=== PATIENT | female | born 1940 | race Caucasian/White ===

== ENCOUNTER 2016-11-11 13:22 | Emergency (ER) | payer MEDICARE, OTHER ==
[~2016-11-11 13:22] MED LIST: ALEVE220 MG PO; B12250T PO; DILT-XR120 MG PO; HALF81 PO; SYN1 PO
[2016-11-11 14:25] LABS: BASOPHILS 0.5 %; BASOPHILS ABSOLUTE 0.03 10/3/uL (0.0-0.16); EOSINOPHILS 0.5 %; EOSINOPHILS ABSOLUTE 0.03 10/3/uL (0.0-0.53); LYMPHOCYTES 14.6 %; LYMPHOCYTES ABSOLUTE 0.94 10/3/uL (0.67-4.30); MEAN CORPUSCULAR HEMOGLOB 31.5 pg (26.0-34.0); MEAN CORPUSCULAR VOLUME 95.4 fL (80-100); MEAN PLATELET VOLUME 11.1 fL (9.2-13.0); MONOCYTES 9.2 %; MONOCYTES ABSOLUTE 0.59 10/3/uL (0.21-1.20); NEUTROPHILS 75.2 %; NEUTROPHILS ABSOLUTE 4.84 10/3/uL (2.02-8.40); PLATELET COUNT 167 10/3/uL (150-400); RBC DISTRIBUTION WIDTH 13.7 % (12.0-16.0); WHITE BLOOD CELLS 6.4 10/3/uL (4.5-10.5)
[2016-11-11 14:26] LABS: HEMATOCRIT 41.2 % (36.0-48.0); HEMOGLOBIN 13.6 g/dL (12.0-16.0); MANUAL DIFF NO %; RED CELL COUNT 4.32 10/6/uL (4.0-5.6)
[2016-11-11 14:38] LABS: CHLORIDE, SERUM 104 MMOL/L (96-112); CO2 (CARBON DIOXIDE) 29 MMOL/L (24-34); CREATININE 0.98 MG/DL (0.55-1.02); GFR AFRICAN AMERICAN 64 ML/MIN (>=60); GFR NON AFRICAN AMERICAN 56 ML/MIN (>=60); POTASSIUM, SERUM 4.1 MMOL/L (3.5-5.3); SODIUM, SERUM 140 MMOL/L (135-148)
[2016-11-11 14:41] LABS: BUN (BLOOD UREA NITROGEN) 13 MG/DL (6-23); GLUCOSE, SERUM 101 MG/DL (60-99)
[2016-11-11 14:42] LABS: CALCIUM, SERUM 10.1 MG/DL (8.5-10.4)
[2017-02-16] MEDS ORDERED: PRIN20 PO (12:45)
[2017-02-16] MEDS ORDERED: SYN1 PO (12:45)
[2017-02-16] MEDS ORDERED: ASAB PO (12:46)
[2017-02-16] MEDS ORDERED: FIBERCON PO (12:47)
[2017-02-16] MEDS ORDERED: VITAMIN B-12 PO (12:47)
[2017-02-16] MEDS ORDERED: DSS PO (12:48)
[2017-02-16] MEDS ORDERED: ALEVE220 MG PO (12:48)
[2017-02-16] MEDS ORDERED: SYSTANE OPH (12:49)
[2017-02-17] MEDS ORDERED: LIPITOR80 MG PO (15:39)
[2017-02-17] MEDS ORDERED: ELIQUIS 5 MG TAB5 MG PO (15:40)
== END 2016-11-11 15:40 | disposition home or self-care (01) ==
LOC: ER 13:22
PROVIDERS: Nurse Practitioner Acute Care
DX: R51 Headache (principal); I10 Essential (primary) hypertension; I48.91 Unspecified atrial fibrillation; Z79.82 Long term (current) use of aspirin; Z79.899 Other long term (current) drug therapy
CPT/HCPCS: 70450; 80048; 85025; 99284; A9270-GY